=== PATIENT | female | born 1960 | race Caucasian/White ===

== ENCOUNTER 2024-05-14 10:58 | Emergency (ER) | payer MEDICARE ==
[~2024-05-14] VITALS: Ht 165.1 cm; Wt 67.6 kg
[2024-05-14 11:06] VITALS: BP 138/87; PULSE 78; RESP 16; TEMP 98.8; O2SAT 98
--- NOTE | 2024-05-14 11:06 | ERN ---
ED Note History of Present Illness Stated Complaint: LEG PAIN Chief Complaint: Lower Extremity Pain/Injury Time Seen by MD: 11:01 Dictation: PATIENT IS A 64-YEAR-OLD FEMALE THAT IS STATES SHE HAS BEEN HAVING RIGHT LOWER LEG PAIN WORSE WHEN SHE WALKS FOR THE LAST SEVERAL DAYS. SHE DENIES ANY TRAUMA NO FEVER NO CHILLS. STATES THEY WERE DRIVING [place] AND STOPPED IN [place] AND HAD ULTRASOUND DONE WITH LABS THAT WERE BASICALLY NEGATIVE AND THE DOCTOR THERE TOLD HER TO GO SEE IT EMERGENCY ROOM OR A PHYSICIAN AFTER THEY GOT TO THE [facility]. THEY ARE HERE FOR TWO MONTHS NO PRIMARY CARE DOCTOR. PATIENT STATES SHE HAS BEEN WEARING COMPRESSION STOCKINGS HOWEVER THEY HAVE NOT BEEN BENEFICIAL. NOTHING HAS BEEN PRESCRIBED FOR PAIN. LEG IS WARM TO TOUCH WITH MILD CALF TENDERNESS. Allergies: Coded Allergies: No Known Drug Allergies (Unverified Allergy, Unknown, 05/14/24) Home Meds Active Scripts Cyclobenzaprine HCl (Cyclobenzaprine HCl) 10 Mg Tablet, 1 TAB PO HS for muscle spasms for 30 Days, #30 TAB 0 Refills Prov:GEO CRONIN NP 05/14/24 Ibuprofen (Ibuprofen) 600 Mg Tablet, 600 MG PO Q6H PRN for PAIN, #30 TAB Prov:GEO CRONIN OVEN UNLOADER 05/14/24 Past Medical History History: Not Applicable RN Note Reviewed/Agreed w/PFSH: Yes Review of System Dictation CONSTITUTIONAL: NEGATIVE EXCEPT FOR HPI HEAD/FACE: NEGATIVE EXCEPT FOR HPI EENT: NEGATIVE EXCEPT FOR HPI RESPIRATORY: NEGATIVE EXCEPT FOR HPI GASTROINTESTINAL/ABDOMINAL: NEGATIVE EXCEPT FOR HPI GENITOURINARY: NEGATIVE EXCEPT FOR HPI MUSCULOSKELETAL: NEGATIVE EXCEPT FOR HPI RIGHT LOWER LEG PAIN INTEGUMENTARY: NEGATIVE EXCEPT FOR HPI NEUROLOGICAL/PSYCH: NEGATIVE EXCEPT FOR HPI HEMATOLOGIC/LYMPHATIC: NEGATIVE EXCEPT FOR HPI ALL SYSTEMS NEGATIVE, EXCEPT NOTED ABOVE. 13 POINT REVIEW OF SYSTEMS ASSESSED AND ALL NEGATIVE EXCEPT FOR ABOVE. Initial Vital Sign VS Vital Signs Date Time Temp Pulse Resp B/P (MAP) Pulse Ox O2 Delivery O2 Flow Rate FiO2 05/14/24 10:59 99.0 78 16 138/87 98 Room Air 0 05/14/24 11:06 21 Physical Exam Dictation VITAL SIGNS REVIEWED GENERAL APPEARANCE: ALERT, ORIENTED X 3, MILD ACUTE DISTRESS, WELL DEVELOPED, NOURISHED. HEAD AND FACE: NON-TRAUMATIC. EYES: PERRL, PINK CONJUNCTIVAS, EYELID NO TRAUMA, ANTERIOR CHAMBER WITH ARCUS SENILIS. EARS: PINNAS INTACT AND NO SIGNS OF TRAUMA OR ERYTHEMA EAR CANALS CLEAR AND NO DISCHARGE TM NO ERYTHEMA NOSE: NO DISCHARGE, NO BLEEDING. OROPHARYNX: MOUTH NORMAL, TONGUE PINK, PHARYNX CLEAR,NO ERYTHEMA, TONSILS NO EXUDATES, NO ABSCESSES NOTED, MUCOUS MEMBRANE MOIST NECK: SUPPLE, NON-TENDER, NO THYROMEGALY, NO MASSES, NO JVD, NO BRUITS BREAST:DEFERRED CHEST:NO TENDERNESS, NO CREPITUS, NO PARADOXICAL MOVEMENT, NO RETRACTIONS LUNGS:CLEAR, WELL-VENTILATED, SYMMETRIC, NO RALES, NO WHEEZING, NO RHONCHI, NO STRIDOR, GOOD BREATH SOUNDS BILATERALLY HEART: REGULAR RATE, REGULAR RHYTHM, NO MURMUR, NO GALLOPS VASCULAR: NO PERIPHERAL EDEMA, ABDOMEN: SOFT, POSITIVE BOWEL SOUNDS, NONDISTENDED, NO GUARDING, NONTENDER, NO REBOUND, NO MASSES NO HEPATOMEGALY, NO SPLENOMEGALY, NO VALENZUELA'S SIGN, NO HERNIAS. RECTAL: DEFERRED GENITAL: DEFERRED NEUROLOGICAL: NORMAL SPEECH, MOTOR FUNCTION INTACT, SENSORY FUNCTION INTACT MUSCULOSKELETAL: NECK NONTENDER, FULL RANGE OF MOTION, BACK NONTENDER, FULL RANGE OF MOTION, EXTREMITIES: FULL RANGE OF MOTION, MILD CALF TENDERNESS NO SWELLING NOTED. SKIN INTACT WITHOUT ERYTHEMA DISTAL NEUROVASCULAR CMS INTACT. SKIN: COLOR PINK, DRY, NO TURGOR, NO RASH, NO LACERATIONS, NO ABRASIONS, NO CONTUSIONS. LYMPHATIC: DEFERRED Results (Laboratory/Radiology) Laboratory/Radiology Laboratory Tests Test 05/14/24 11:39 White Blood Count 7.4 K/uL (4.8-10.8) Red Blood Count 4.25 MIL/uL (4.00-5.50) Hemoglobin 11.7 g/dL (12.0-16.0) L Hematocrit 36.5 % (36-48) Mean Corpuscular Volume 85.9 fL (79-99) Mean Corpuscular Hemoglobin 27.5 pg (27.0-33.0) Mean Corpuscular Hemoglobin Concent 32.1 g/dL (32.0-36.0) Red Cell Distribution Width 16.1 % (11.0-15.5) H Platelet Count 271 K/uL (130-400) Mean Platelet Volume 9.3 fL (7.5-10.5) Immature Granulocyte % (Auto) 0.1 % (0-1) Neutrophils (%) (Auto) 71.0 % (40.0-77.0) Lymphocytes (%) (Auto) 17.4 % (21.0-51.0) L Monocytes (%) (Auto) 7.7 % (3.0-13.0) Eosinophils (%) (Auto) 3.3 % (0.0-8.0) Basophils (%) (Auto) 0.5 % (0.0-5.0) Neutrophils # (Auto) 5.2 K/uL (1.8-7.7) Lymphocytes # (Auto) 1.3 K/uL (1.0-4.8) Monocytes # (Auto) 0.6 K/uL (0.1-1.0) Eosinophils # (Auto) 0.24 K/uL (0.00-0.70) Basophils # (Auto) 0.04 K/uL (0.00-0.20) Absolute Immature Granulocyte (auto 0.01 K/uL (0-1) Nucleated Red Blood Cells 0.0 % (0.0-0.19) Sodium Level 143 mmol/L (136-145) Potassium Level 3.7 mmol/L (3.5-5.1) Chloride Level 107 mmol/L (101-111) Carbon Dioxide Level 31 mmol/L (21-32) Blood Urea Nitrogen 12 mg/dL (7-18) Creatinine 0.9 mg/dL (0.5-1.0) Glomerular Filtration Rate Calc 71 mL/min (>90) Random Glucose 91 mg/dL (70-105) Total Calcium 9.5 mg/dL (8.5-10.1) Magnesium Level 2.20 mg/dL (1.80-2.40) REASON: RIGHT LOWER EXTREMITY CALF PAIN TENDERNESS. ORDERING PHYSICIAN: GEO CRONIN NP PROCEDURE: VENOUS UNI - US VENOUS DOPPLER UNILATERAL US VENOUS DOPPLER UNILATERAL REASON: RIGHT LOWER EXTREMITY CALF PAIN TENDERNESS. COMPARISON: None Technique: Right venous doppler ultrasound was performed with spectral analysis and color flow imaging technique. FINDINGS: There is a normal appearance of the common femoral, deep femoral, the profunda femoris and popliteal veins. Proximal calf veins appear normal as well. There is normal response to compression and augmentation. There is no evidence of deep venous thrombosis. IMPRESSION: Normal right lower extremity venous Doppler ultrasound. SSION#: [id number] REPORT#: [id number] SERVICE [id number] REASON: PAIN WITH CLAUDICATION TO RIGHT LEG CALF ORDERING PHYSICIAN: GEO CRONIN OVEN UNLOADER PROCEDURE: ART U LE - US ARTERIAL UNILA LOW EXT DUPL US ARTERIAL UNILA LOW EXT DUPL REASON: PAIN WITH CLAUDICATION TO RIGHT LEG CALF COMPARISON: None TECHNIQUE: Right leg arterial Doppler evaluation was performed with spectral analysis and color flow imaging. FINDINGS: There are normal triphasic waveforms present throughout the right lower extremity. Flow velocities are preserved throughout. There is no evidence of arterial inflow occlusion. IMPRESSION: 1. Normal right leg arterial Doppler vascular evaluation. Labs Reviewed?: Yes ED Course ED Course Orders Procedure Category Date Status Time Magnesium LAB 05/14/24 Complete 11:02 Cbc With Differential LAB 05/14/24 Complete 11:02 0.9%Nacl 1000ml (Ns PHA 05/14/24 Complete 1000ml) 11:30 Ketorolac PHA 05/14/24 Complete Tromethamine 30mg/Ml 11:30 Basic Metabolic Panel LAB 05/14/24 Complete 11:02 Us Arterial Unila Low US 05/14/24 Resulted Ext Dupl 11:02 Us Venous Doppler US 05/14/24 Resulted Unilateral 11:06 Current Medications Medications (Trade) Dose Ordered Sig/Mauricio Route PRN Reason Start Time Stop Time Status Last Admin Dose Admin Ketorolac Tromethamine (toRADol) 30 mg ONCE ONCE IVP 05/14/24 11:30 05/14/24 11:31 DC 05/14/24 11:42 Sodium Chloride 1,000 ml @ 0 mls/hr ONCE ONCE IV 05/14/24 11:30 05/14/24 11:31 DC 05/14/24 11:42 Vital Signs Date Time Temp Pulse Resp B/P (MAP) Pulse Ox O2 Delivery O2 Flow Rate FiO2 05/14/24 11:06 98.8 78 16 138/87 98 Room Air* 0 21 05/14/24 10:59 99.0 78 16 138/87 98 Room Air 0 1255, PAIN IS REDUCED AFTER FLUIDS AND KETOROLAC. PATIENT IS AWARE SHE HAS STAGE 2 KIDNEY DISEASE HOWEVER NORMAL ULTRASOUND ARTERIAL AND VENOUS WITH NO ELECTROLYTE IMBALANCE DEHYDRATION ETC.. SHE WILL BE SENT HOME WITH IBUPROFEN AND FLEXERIL AND GIVEN A LIST OF THE LOCAL DOCTORS Medical Decision Making MDM MDM: DIFFERENTIAL DIAGNOSIS: PERIPHERAL ARTERIAL DISEASE, DVT/ELECTROLYTE IMBALANCE/DEHYDRATION/KIDNEY DISEASE RATIONALE: TESTS CONSIDERED AND ORDERED SECONDARY TO SHARED DECISION MAKING INCLUDE: RADIOLOGY/LABS PREVIOUS OUTSIDE RECORDS REVIEWED: OLD ER VISITS. NONE RISK OF COMPLICATION AND/OR MORBIDITY OR MORTALITY OF PATIENT MANAGEMENT: NONE MEDICATIONS-PER MEDICATION RECONCILIATION SEE NURSE'S NOTES NEED FOR HOSPITALIZATION: PATIENT DOES NOT MEET CRITERIA FOR HOSPITALIZATION. NO NEED FOR EMERGENCY MAJOR/MINOR SURGERY: NO THERE ARE NO SOCIAL CONCERNS WITH THIS PATIENT. PRESCRIPTION DRUG MANAGEMENT IBUPROFEN/FLEXERIL PRESCRIPTIONS WILL INCLUDE SYMPTOMATIC CARE PATIENT'S PRIOR EXTERNAL MEDICAL RECORDS FROM OTHER ER VISITS WERE REVIEWED BY ME INDICATED. PRIOR TESTING AND RESULTS FROM PREVIOUS VISITS WERE REVIEWED. PRIOR TESTS WERE TAKEN INTO ACCOUNT WITH MEDICAL DECISION MAKING AND RESOURCE UTILIZATION, INDEPENDENT HISTORIAN/HISTORIANS WERE USED TO OBTAIN COMPLETE MEDICAL HISTORY. I INDEPENDENTLY INTERPRETED THE TEST THAT WERE PERFORMED, RESULTS WERE REVIEWED BY ME AND CONSIDERED FINDINGS ON RADIOLOGY IF ORDERED. MEDICAL MANAGEMENT AND EXAMINATION INTERPRETATION DISCUSSIONS WERE HAD BY ME WITH OTHER QUALIFIED HEALTHCARE PROFESSIONALS INDICATED FOR THE PATIENT'S CARE. DX & DISP Disposition: Discharge Departure Impression: Primary Impression: Arthralgia of right lower leg Additional Impression: Stage 2 chronic kidney disease Condition: Stable Scripts Cyclobenzaprine HCl (Cyclobenzaprine HCl) 10 Mg Tablet 1 TAB PO HS for muscle spasms for 30 Days, #30 TAB 0 Refills Prov: GEO CRONIN OVEN UNLOADER 05/14/24 Ibuprofen (Ibuprofen) 600 Mg Tablet 600 MG PO Q6H PRN for PAIN, #30 TAB Prov: GEO CRONIN OVEN UNLOADER 05/14/24 Additional Instructions: FOLLOW-UP WITH PRIMARY CARE PROVIDER IN 1 TO 2 DAYS. TAKE MEDICATIONS DIRECTED HERE IN THE EMERGENCY ROOM. OKAY TO CONTINUE HOME MEDICATIONS UNLESS OTHERWISE DISCUSSED DURING YOUR VISIT IN THE EMERGENCY ROOM TODAY. RETURN TO YOUR NEAREST EMERGENCY ROOM IF SYMPTOMS WORSEN OR IF THERE IS NO IMPROVEMENT. CALL 911 IF YOU NEED IMMEDIATE ASSISTANCE. TAKE TYLENOL OR MOTRIN [id number] NEEDED AND IF NO CONTRAINDICATIONS ARE PRESENT. INCREASE ORAL HYDRATION. A WOUND CULTURE OR URINE CULTURE WAS ORDERED HERE IN THE EMERGENCY ROOM DEPARTMENT PLEASE FOLLOW-UP WITH PRIMARY CARE PROVIDER AND ADVISE THEM TO GET REPEAT PORTS FROM OUR FACILITY. IF YOU HAD ANY TATO WRAP/SPLINTS THAT WERE APPLIED HERE, PLEASE DO NOT REMOVE THEM UNTIL YOU SEE YOUR PRIMARY CARE OR SPECIALTY. TAKE IBUPROFEN WITH FOOD EVERY8 HOURS FOR THE NEXT THREE DAYS. TAKE FLEXERIL AT BEDTIME FOR THE NEXT 10 DAYS. FOLLOW UP WITH ONE OF THE DOCTORS ON THE LIST PROVIDED YOU IN THE NEXT 1-2 DAYS. Time of Disposition: 13:00 I have reviewed the case, and I agree with, Diagnosis and Plan I performed this substantive portion of this visit. I have reviewed and personally made and approve the management plan that is documented in the note by myself or the MARIO. I acknowledge full responsibility for the patient's management plan. GEO CRONIN NP May 14, 2024 11:06 SOPHIE ROSSI MD May 14, 2024 15:18
--- NOTE | 2024-05-14 11:40 | HMCIMG ---
US ARTERIAL UNILA LOW EXT DUPL REASON: PAIN WITH CLAUDICATION TO RIGHT LEG CALF COMPARISON: None TECHNIQUE: Right leg arterial Doppler evaluation was performed with spectral analysis and color flow imaging. FINDINGS: There are normal triphasic waveforms present throughout the right lower extremity. Flow velocities are preserved throughout. There is no evidence of arterial inflow occlusion. IMPRESSION: 1. Normal right leg arterial Doppler vascular evaluation.
[2024-05-14] MEDS: 0.9%NACL 1000ML 1,000 ML IV ONE (11:42)
[2024-05-14] MEDS: ketOROlac 30MG VIAL (30MG/ML) IVP ONE (11:42)
--- NOTE | 2024-05-14 11:42 | HMCIMG ---
US VENOUS DOPPLER UNILATERAL REASON: RIGHT LOWER EXTREMITY CALF PAIN TENDERNESS. COMPARISON: None Technique: Right venous doppler ultrasound was performed with spectral analysis and color flow imaging technique. FINDINGS: There is a normal appearance of the common femoral, deep femoral, the profunda femoris and popliteal veins. Proximal calf veins appear normal as well. There is normal response to compression and augmentation. There is no evidence of deep venous thrombosis. IMPRESSION: Normal right lower extremity venous Doppler ultrasound.
[2024-05-14 12:00] LABS: BASOPHILS # (AUTO) 0.04 K/uL (0.00-0.20); BASOPHILS % (AUTO) 0.5 % (0.0-5.0); EOSINOPHILS # (AUTO) 0.24 K/uL (0.00-0.70); EOSINOPHILS % (AUTO) 3.3 % (0.0-8.0); HEMATOCRIT 36.5 % (36-48); IMMATURE GRANULOCYTE ABSOLUTE 0.01 K/uL (0-1); LYMPHOCYTES # (AUTO) 1.3 K/uL (1.0-4.8); LYMPHOCYTES % (AUTO) 17.4 % (21.0-51.0); MEAN CORPUSCULAR HEMOGLOBIN 27.5 pg (27.0-33.0); MEAN CORPUSCULAR HGB CONC 32.1 g/dL (32.0-36.0); MEAN CORPUSCULAR VOLUME 85.9 fL (79-99); MONOCYTES # (AUTO) 0.6 K/uL (0.1-1.0); MONOCYTES % (AUTO) 7.7 % (3.0-13.0); NEUTROPHILS # (AUTO) 5.2 K/uL (1.8-7.7); PLATELET COUNT (AUTO) 271 K/uL (130-400); RED BLOOD CELL COUNT(AUTO) 4.25 MIL/uL (4.00-5.50); RED CELL DISTRIBUTION WIDTH 16.1 % (11.0-15.5); WHITE BLOOD COUNT (AUTO) 7.4 K/uL (4.8-10.8)
[2024-05-14 12:06] LABS: CREATININE 0.9 mg/dL (0.5-1.0); MAGNESIUM 2.2 mg/dL (1.80-2.40); POTASSIUM 3.7 mmol/L (3.5-5.1)
[2024-05-14] MEDS ORDERED: CYCL-309 PO (13:01)
[2024-05-14] MEDS ORDERED: IBUP-2070 PO (13:01)
== END 2024-05-14 13:09 | disposition home or self-care (01) ==
LOC: EDBD 10:58 → EDH 10:58
DX: N18.2 Chronic kidney disease, stage 2 (mild) (principal); M79.661 Pain in right lower leg
CPT/HCPCS: 99285; 96374; 93971; 93926; 83735; 80048; 85025; 36415; J7030; J1885